=== PATIENT | male | born 1935 | race African-American/Black ===

== ENCOUNTER → 2019-09-02 | Outpatient (CLI) | payer MEDICARE, MEDICAID ==
[~2019-09-02] MED LIST: ACET-2708 PO; GABA-531 PO; OMEP20CA5 PO; OXYB5TAB11 PO
[2019-09-02 12:29] LABS: BASOPHILS % 0.4 % (0.0-2.0); EOSINOPHILS % 2.9 % (0.0-5.0); HEMATOCRIT. 34.8 % (42.0-52.0); HEMOGLOBIN. 11.8 g/dL (14.0-18.0); LYMPHOCYTES % 18.7 % (20.0-50.0); MEAN CORPUSCULAR VOLUME 91.7 fL (80.0-94.0); MEAN PLATELET VOLUME 8.4 fl (7.4-10.4); MONOCYTES % 3.7 % (2.0-8.0); NEUTROPHILS % 74.3 % (40.0-76.0); PLATELET 196 x1000/uL (130-400); RED CELL DISTRIBUTION WIDTH 14.4 % (11.6-14.6)
[2019-09-02 12:35] LABS: INR 1.1; PROTHROMBIN TIME 10.9 sec (9.6-11.0)
[2019-09-02 12:38] LABS: CHLORIDE 110 mEq/L (98-107)
[2019-09-02 13:02] LABS: CLARITY URINE CLEAR (CLEAR); COLOR URINE YELLOW (YELLOW); KETONES URINE NEGATIVE (NEGATIVE); LEUKOCYTE ESTERASE URINE 2+ (NEGATIVE); NITRITE URINE NEGATIVE (NEGATIVE); OCCULT BLOOD URINE NEGATIVE (NEGATIVE); PROTEIN URINE NEGATIVE (NEGATIVE); SPECIFIC GRAVITY URINE 1.013 (1.005-1.030)
== END | disposition home or self-care (01) ==
LOC: LAB 11:31
PROVIDERS: ATTEND Internal Medicine Pulmonary Disease
DX: Z01.812 Encounter for preprocedural laboratory examination (principal); R79.89 Other specified abnormal findings of blood chemistry; R82.998 Other abnormal findings in urine; R79.1 Abnormal coagulation profile
CPT/HCPCS: 36415; 80048; 81003; 93005

== ENCOUNTER 2019-09-03 05:56 | Day surgery (SDC) | payer MEDICARE, MEDICAID ==
[~2019-09-03] VITALS: Ht 172.7 cm; Wt 75.3 kg
[2019-09-03] MEDS ORDERED: LACTATED RINGERS 1,000 ML IV SCH (06:00)
[2019-09-03] MEDS ORDERED: FENTANYL CITRATE/PF 50MCG/ML 2ML VIAL ONE (07:31)
[2019-09-03] MEDS ORDERED: MIDAZOLAM HCL 2 MG/2 ML VIAL ONE (07:32)
[2019-09-03] MEDS ORDERED: PROPOFOL 200MG/20ML VIAL IV ONE (07:32)
[2019-09-03] MEDS ORDERED: ROCURONIUM BROMIDE 10MG/ML VIAL 5ML IV ONE (07:32)
[2019-09-03] MEDS ORDERED: LIDOCAINE HCL/PF 1% 10 MG/ML 5ML VIAL ONE (07:33)
[2019-09-03] MEDS ORDERED: SUCCINYLCHOLINE CHLORIDE 200MG/10ML IV ONE (07:34)
[2019-09-03] MEDS ORDERED: SODIUM CHLORIDE 0.9% 10ML VIAL ONE (07:36)
[2019-09-03] MEDS ORDERED: EPHEDRINE SULFATE 50MG/ML VIAL ONE (07:36)
[2019-09-03] MEDS ORDERED: ONDANSETRON HCL 4MG/2ML INJ ONE (07:49)
[2019-09-03] MEDS ORDERED: DEXAMETHASONE 4MG/ML 1ML VIAL ONE (07:49)
[2019-09-03] MEDS ORDERED: NEOSTIGMINE METHYLSULFATE 1MG/ML 10 ML VIAL ONE (08:11)
[2019-09-03] MEDS ORDERED: GLYCOPYRROLATE 0.2 MG/ML 2ML VIAL ONE ×2 (08:11→08:20)
[2019-09-03] MEDS ORDERED: TRAMADOL 50MG TABLET PO PRN (08:15)
[2019-09-03] MEDS ORDERED: FLUMAZENIL 0.1 MG/ML 5ML VIAL IV ONE (08:26)
[2019-09-03] MEDS ORDERED: ESMOLOL HCL 10MG/ML 10ML VIAL IV ONE (08:33)
[2019-09-03] MEDS ORDERED: OMEP20CA5 PO (08:53)
[2019-09-03] MEDS ORDERED: ACET-2708 PO (08:53)
[2019-09-03] MEDS ORDERED: GABA-531 PO (08:53)
[2019-09-03] MEDS ORDERED: OXYB5TAB11 PO (08:53)
[2019-09-03] MEDS ORDERED: NYSTATIN POWDER 15GM TOP SCH (12:45)
[2019-09-03] MEDS ORDERED: HYDROCORTISONE 1% RECTAL CREAM 30GM PR SCH (13:00)
== END 2019-09-03 14:20 | disposition home or self-care (01) ==
LOC: OR 05:56
PROVIDERS: ATTEND Urology
DX: N20.0 Calculus of kidney (principal); M19.90 Unspecified osteoarthritis, unspecified site; M47.12 Other spondylosis with myelopathy, cervical region; Z87.440 Personal history of urinary (tract) infections; Z79.899 Other long term (current) drug therapy; Z88.8 Allergy status to other drugs, medicaments and biological substances
CPT/HCPCS: 50590; 71045; J1100; J2250; J2405; J2704; J2710; J3010; J3490; J0330; A4315